=== PATIENT | male | born 1975 | race Hispanic/Latino ===

== ENCOUNTER 2017-04-13 11:29 | Emergency (ER) | payer SELFPAY | END 2017-04-13 12:04 | disposition home or self-care (01) | LOC: EDH 11:29 | DX: J06.9 Acute upper respiratory infection, unspecified (principal); I10 Essential (primary) hypertension; E11.9 Type 2 diabetes mellitus without complications; Z79.899 Other long term (current) drug therapy; Z87.891 Personal history of nicotine dependence | CPT/HCPCS: 99281 ==

== ENCOUNTER 2022-09-23 16:33 | Emergency (ER) | payer BC ==
[~2022-09-23] VITALS: Ht 185.4 cm; Wt 106.6 kg
[2022-09-23] MEDS ORDERED: PRED50TA2 PO (17:15)
[2022-09-23] MEDS ORDERED: GABA300C PO (17:15)
[2022-09-23] MEDS ORDERED: PREDNISONE 20 MG TABLET ONE (17:35)
[2022-09-23] MEDS ORDERED: GABAPENTIN 300 MG CAPSULE ONE (17:36)
[2022-09-23] MEDS ORDERED: GABAPENTIN 300 MG CAPSULE PO SCH (18:00)
[2022-09-23] MEDS ORDERED: PREDNISONE 20 MG TABLET PO ONE (18:00)
[2022-09-23 18:20] VITALS: BP 148/78
== END 2022-09-23 17:43 | disposition home or self-care (01) ==
LOC: EDH 16:33
DX: M79.2 Neuralgia and neuritis, unspecified (principal); I10 Essential (primary) hypertension

== ENCOUNTER 2023-03-05 16:53 | Emergency (ER) | payer BC ==
[~2023-03-05] VITALS: Ht 182.9 cm; Wt 90.7 kg
[2023-03-05 16:53] VITALS: BP 144/90; PULSE 95; RESP 16
[~2023-03-05 16:53] MED LIST: GABA300C PO; PRED50TA2 PO
[2023-03-05] MEDS ORDERED: BENZ200C53 PO (19:58)
== END 2023-03-05 20:11 | disposition home or self-care (01) ==
LOC: EDH 16:53
DX: J11.1 Influenza due to unidentified influenza virus with other respiratory manifestations (principal); R05.9 Cough, unspecified; E11.9 Type 2 diabetes mellitus without complications; E78.00 Pure hypercholesterolemia, unspecified; I10 Essential (primary) hypertension; Z79.52 Long term (current) use of systemic steroids; Z79.899 Other long term (current) drug therapy
CPT/HCPCS: 71045

== ENCOUNTER 2023-06-21 21:04 | Emergency (ER) | payer BC ==
[~2023-06-21 21:04] MED LIST changes: +BENZ200C53 PO
== END 2023-06-21 21:51 | disposition left against medical advice (07) ==
LOC: EDH 21:04

== ENCOUNTER 2023-06-22 07:16 | Emergency (ER) | payer BC ==
[~2023-06-22] VITALS: Ht 180.3 cm; Wt 92.5 kg
[2023-06-22 07:18] VITALS: BP 159/91; PULSE 90; RESP 18
[2023-06-22 07:47] LABS: BASOPHILS # (AUTO) 0.02 K/uL (0.00-0.20); BASOPHILS % (AUTO) 0.3 % (0.0-5.0); EOSINOPHILS # (AUTO) 0.03 K/uL (0.00-0.70); EOSINOPHILS % (AUTO) 0.5 % (0.0-8.0); HEMATOCRIT 45.7 % (42-54); IMMATURE GRANULOCYTE ABSOLUTE 0.03 K/uL (0-1); LYMPHOCYTES # (AUTO) 1.6 K/uL (1.0-4.8); LYMPHOCYTES % (AUTO) 24.6 % (21.0-51.0); MEAN CORPUSCULAR HEMOGLOBIN 28.5 pg (27.0-33.0); MEAN CORPUSCULAR VOLUME 81.5 fL (79-99); MONOCYTES # (AUTO) 0.4 K/uL (0.1-1.0); MONOCYTES % (AUTO) 5.9 % (3.0-13.0); NEUTROPHILS # (AUTO) 4.3 K/uL (1.8-7.7); NEUTROPHILS % (AUTO) 68.2 % (40.0-77.0); PLATELET COUNT (AUTO) 185 K/uL (130-400); RED BLOOD CELL COUNT(AUTO) 5.61 MIL/uL (4.50-6.20); RED CELL DISTRIBUTION WIDTH 11.9 % (11.0-15.5); WHITE BLOOD COUNT (AUTO) 6.3 K/uL (4.8-10.8)
[2023-06-22 08:27] LABS: ALBUMIN 4.1 g/dL (3.5-5.0); BILIRUBIN,TOTAL 0.4 mg/dL (0.2-1.0); CREATININE 0.7 mg/dL (0.5-1.3); POTASSIUM 4.3 mmol/L (3.5-5.1); TOTAL PROTEIN, SERUM 7.8 g/dL (6.0-8.3)
[2023-06-22 08:37] LABS: APPEARANCE,URINE CLEAR (CLEAR); BILIRUBIN,URINE NEGATIVE (NEGATIVE); COLOR,URINE LIGHT-YELLOW (YELLOW); GLUCOSE, URINE (UA) 50 mg/dL (NEGATIVE); KETONES,URINE NEGATIVE (NEGATIVE); LEUKOCYTE ESTERASE ,URINE NEGATIVE Leu/uL (NEGATIVE); NITRATE,URINE NEGATIVE (NEGATIVE); OCCULT BLOOD,URINE NEGATIVE (NEGATIVE); PH,URINE 5.5 (5.0-8.0); PROTEIN,URINE NEGATIVE (NEGATIVE); UROBILINOGEN,URINE 0.2 mg/dL (0.2-1.0)
[2023-06-22 09:00] LABS: ADD UA MICROSCOPIC YES
[2023-06-22 09:02] LABS: MUCUS,URINE RARE LPF (None Seen); WBC,URINE 0-1 /HPF (0-1)
[2023-06-22] MEDS ORDERED: IOHEXOL-350 75 ML VIAL IV ONE (09:48)
[2023-06-22] MEDS: KETOROLAC 30MG VIAL (30MG/ML) IM ONE (11:02)
== END 2023-06-22 11:27 | disposition home or self-care (01) ==
LOC: EDH 07:16
DX: M79.10 Myalgia, unspecified site (principal); R10.10 Upper abdominal pain, unspecified; E11.9 Type 2 diabetes mellitus without complications; E78.00 Pure hypercholesterolemia, unspecified; I10 Essential (primary) hypertension; Z79.52 Long term (current) use of systemic steroids; Z79.899 Other long term (current) drug therapy
CPT/HCPCS: 99284; 74177; 80053; 83690; 85025; 81001; 36415; 96372; J1885; Q9967